=== PATIENT | male | born 1970 | race Caucasian/White ===

== ENCOUNTER 2019-07-13 08:13 | Outpatient (CLI) | payer OTHER, SELFPAY ==
--- NOTE | ~2019-07-13 | CT_ITS ---
EXAMINATION: CT abdomen wo/w con DATE: 07/13/2019 08:59 INDICATION: Malignant neoplasm of right kidney, except renal pelvis. TECHNIQUE: Computed tomography (CT) of the abdomen was performed without and with 100 mL Omnipaque 35 0 intravenous contrast. Automated exposure control and iterative reconstruction technique were employ ed. The dose-length product was 895.25 mGy-cm. COMPARISON: CT abdomen and pelvis 06/16/2012 FINDINGS: The visualized portions of the lung bases demonstrate chronic elevation of right hemidiaphr agm. There is mild atelectasis in the lungs bilaterally. No pleural effusion. The heart size is saundra l. No pericardial effusion. There is diffuse hepatic steatosis. The gallbladder, spleen, pancreas, ad renal glands are normal. There is a 4 mm cyst in right kidney. There is mild atrophy of right kidney inferior pole. The kidneys demonstrate prominent columns of Kieran. There are no dilated loops of bow el. There are no pathologically enlarged lymph nodes. There is no free intraperitoneal fluid. There i s mild thoracic spondylosis and moderate lumbar spondylosis. IMPRESSION: 1. No evidence of malignancy. Reviewed, dictated and finalized at location A.
[2019-07-13 08:44] LABS: Estimated Glomerular Filt Rate > 60
== END 2019-07-13 08:14 | disposition home or self-care (01) ==
LOC: ANHIMG 08:20
PROVIDERS: PCP Family Medicine; Visit Provider Urology
DX: C64.1 Malignant neoplasm of right kidney, except renal pelvis (principal)
CPT/HCPCS: 36415; 74170; Q9967